=== PATIENT | female | born 1965 | race Hispanic/Latino ===

== ENCOUNTER 2020-02-26 14:43 | Emergency (ER) | payer SELFPAY ==
[~2020-02-26] VITALS: Ht 154.9 cm; Wt 77.1 kg
[2020-02-26] MEDS ORDERED: CLONIDINE HCL 0.2 MG TAB PO ONE (15:00)
[2020-02-26] MEDS ORDERED: NAPROXEN250 MG PO (16:32)
[2020-02-26] MEDS ORDERED: ROBAXIN-750750 MG PO (16:32)
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
[2020-02-26 17:08] VITALS: BP 111/85
--- OUTSIDE RECORDS SUMMARY | 2020-02-28 19:03 | XMS REPORT | Continuity of Care Document ---
Author Author [facility] Address [address] [place] [address] Phone Unavailable Care Team Providers Care Industrial Production Manager Name Role Phone Unavailable Unavailable Payers Payer Name Policy Type Policy Number Effective Date Expiration Date S ource Problems This patient has no known problems. Allergies, Adverse Reactions, Alerts Allergy Name Allergy Type Status Severity Reaction(s) Onset Date Inacti ve Date Treating Clinician Comments Source No Known Allergies DA Active U 2018-01-11 00:00:00 [facility] Medications This patient has no known medications. Procedures This patient has no known procedures. Results This patient has no known results.
== END 2020-02-26 17:09 | disposition home or self-care (01) ==
LOC: ER 15:17
DX: M54.5 Low back pain (principal); I10 Essential (primary) hypertension; E11.9 Type 2 diabetes mellitus without complications; E78.5 Hyperlipidemia, unspecified
CPT/HCPCS: 99284